=== PATIENT | female | born 1935 | race Hispanic/Latino ===

== ENCOUNTER 2019-12-05 11:11 | Day surgery (SDC) | payer MEDICARE ==
[~2019-12-05 11:11] MED LIST: APRACLONIDINE 1% OPHTH SOLN DROPERETTE ONE; PHENYLEPHRINE 10% OPHTH SOLN 5 ML ONE; TROPICAMIDE 1% OPHTH SOLN 3 ML ONE
[2019-12-05] MEDS: TROPICAMIDE 1% OPHTH SOLN 3 ML OD ONE (11:27)
[2019-12-05] MEDS: APRACLONIDINE 1% OPHTH SOLN DROPERETTE OD ONE (11:27)
[2019-12-05] MEDS: PHENYLEPHRINE 10% OPHTH SOLN 5 ML OD ONE (11:27)
[2019-12-05 12:36] VITALS: BP 196/67
== END 2019-12-05 11:12 | disposition home or self-care (01) ==
LOC: OR 11:11
PROVIDERS: ATTEND Specialist
DX: E11.36 Type 2 diabetes mellitus with diabetic cataract (principal); H26.491 Other secondary cataract, right eye; H40.9 Unspecified glaucoma; E78.00 Pure hypercholesterolemia, unspecified; E11.39 Type 2 diabetes mellitus with other diabetic ophthalmic complication; E11.22 Type 2 diabetes mellitus with diabetic chronic kidney disease; N18.3 Chronic kidney disease, stage 3 (moderate); M19.90 Unspecified osteoarthritis, unspecified site; Z72.89 Other problems related to lifestyle; Z98.890 Other specified postprocedural states; Z88.5 Allergy status to narcotic agent; Z87.891 Personal history of nicotine dependence; Z79.899 Other long term (current) drug therapy; Z88.8 Allergy status to other drugs, medicaments and biological substances; Z98.41 Cataract extraction status, right eye; Z98.42 Cataract extraction status, left eye; Z86.718 Personal history of other venous thrombosis and embolism; Z90.49 Acquired absence of other specified parts of digestive tract; Z85.3 Personal history of malignant neoplasm of breast; Z90.710 Acquired absence of both cervix and uterus
CPT/HCPCS: 82962